=== PATIENT | female | born 1985 | race Two or more races ===

== ENCOUNTER 2025-06-10 19:36 | Emergency (ER) | payer OTHER ==
[~2025-06-10] VITALS: Ht 160 cm; Wt 61.2 kg
== END 2025-06-10 20:56 | disposition home or self-care (01) ==
LOC: ER 19:36
DX: O91.23 Nonpurulent mastitis associated with lactation (principal); Z88.2 Allergy status to sulfonamides; Z91.013 Allergy to seafood